=== PATIENT | female | born 1960 | race Caucasian/White ===

== ENCOUNTER 2017-08-03 10:33 | Emergency (ER) | payer OTHER ==
[~2017-08-03] VITALS: Ht 162.6 cm; Wt 100.0 kg
[2017-08-03 10:35] VITALS: BP 137/63; PULSE 83; RESP 16; TEMP 97.8; O2SAT 96
--- NOTE | 2017-08-03 10:59 | PD ---
HPI Chief Complaint: Edema Time Seen by Provider: 10:39 Travel History International Travel<30 days: No Contact w/Intl Traveler<30days: No Traveled to known affect area: No History of Present Illness HPI 57-year-old female came to the emergency room complaining of bilateral lower extremity swelling and pain for past or days. Patient says that she drove for 2 days from [place] to come here. They arrived 4 days ago. Since then she has noticed that her both legs are swollen and she says that they feel very uncomfortable and painful. She's been also having some middle back pain. Patient seemed anxious and uncomfortable. Vital signs are stable. She is complaining of some shortness of breath. Patient has not had these symptoms in the past. She is not on any medications. She says she is a smoker. No previous history of DVT or PE. [facility] Past Medical History Narrative Medical List of her past medical, surgical, social and family history is reviewed from the nursing note. ADHD: Yes Cerebrovascular Accident: Yes (DEC/APR 2017, DEFICIT-STILL DROOLS) ?: Not Past Surgical History Hysterectomy: Yes Social History Alcohol Use: No Tobacco Use: Yes Substance Use: No Allergies-Medications (Allergen,Severity, Reaction): Coded Allergies: No Known Allergies (Unverified , 08/03/17) Comments No known drug allergies. Reported Meds & Prescriptions Reported Meds & Active Scripts Active No Active Prescriptions or Reported Medications Narrative Medication List of her home medications reviewed from the nursing note. Review of Systems Except as stated in HPI: all other systems reviewed are Neg Musculoskeletal: Positive: Edema, Pain Physical Exam Narrative GENERAL: Awake, alert, moderate distress SKIN: Focused skin assessment warm/dry. HEAD: Atraumatic. Normocephalic. EYES: Pupils equal and round. No scleral icterus. No injection or drainage. ENT: No nasal bleeding or discharge. Mucous membranes pink and moist. NECK: Trachea midline. No JVD. CARDIOVASCULAR: Regular rate and rhythm. No murmur appreciated. RESPIRATORY: No accessory muscle use. Clear to auscultation. Breath sounds equal bilaterally. GASTROINTESTINAL: Abdomen soft, non-tender, nondistended. Hepatic and splenic margins not palpable. MUSCULOSKELETAL: No obvious deformities. No clubbing. No cyanosis. Bilateral pedal edema NEUROLOGICAL: Awake and alert. No obvious cranial nerve deficits. Motor grossly within normal limits. Normal speech. PSYCHIATRIC: Appropriate mood and affect; insight and judgment normal. Data Data Last Documented VS Vital Signs Date Time Temp Pulse Resp B/P (MAP) Pulse Ox O2 Delivery O2 Flow Rate FiO2 08/03/17 10:35 97.8 83 16 137/63 (87) 96 Orders Orders Ketorolac Inj (Toradol Inj) (08/03/17 11:15) MDM Medical Decision Making Medical Screen Exam Complete: Yes Emergency Medical Condition: Yes Medical Record Reviewed: Yes Differential Diagnosis DVT, CHF, dependent Narrative Course 12:13 PM blood test was ordered to rule out CHF and ultrasound of bilateral lower extremities were ordered to rule out DVT. However I was told that patient was not in the room any longer when the target aircraft technician arrived. Seems like she has left without telling anybody. Procedures EKG Prior to Arrival: No Scripts No Active Prescriptions or Reported Meds Disposition: 07 AGAINST MEDICAL ADVICE Condition: Serious Bertram Ricketts MD Aug 03, 2017 10:59
[2017-08-03] MEDS ORDERED: KETOROLAC TROMETHAMINE 30 MG/ML (IVP) VIAL IV PUSH ONE (11:15)
== END 2017-08-03 11:48 | disposition left against medical advice (07) ==
LOC: NEPD 10:33
DX: M79.89 Other specified soft tissue disorders (principal); M54.9 Dorsalgia, unspecified; Z72.0 Tobacco use
CPT/HCPCS: 99281